=== PATIENT | female | born 1980 | race Caucasian/White ===

== ENCOUNTER 2016-11-30 17:30 | Emergency (ER) | payer MEDICAID ==
[~2016-11-30] VITALS: Ht 170.2 cm; Wt 61.0 kg
[~2016-11-30 17:30] MED LIST: B12-1CHW CHEW; FIORIC PO; LOMO PO; LORTA5 PO; VITA100T65 PO; ZOFR4TAB3 SL
[2016-11-30 17:36] VITALS: BP 144/85; PULSE 131; RESP 16; TEMP 98.7; O2SAT 100
--- NOTE | 2016-11-30 18:02 | PD ---
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 This patient complains of pelvic cramping and vaginal bleeding. She's had pelvic cramping for 4 solid weeks. She had an outpatient ultrasound 8 days ago showing a bit of fluid in the endometrial cavity and no ovarian cysts or sinister looking masses. There is a tiny cyst in the left side of the uterus. She says that she was having sex with her 4 days ago and during that intercourse she started having vaginal bleeding. Having some bleeding since. Has had tubal ligation. Doesn't think she is . Symptoms severity is moderate. No alleviating factors. Pain was exacerbated by intercourse. PFSH Past Medical History Hx Anticoagulant Therapy: Yes (ASA) Anxiety: Yes Depression: Yes Cancer: No Cardiac Catheterization: No Cardiovascular Problems: Yes (MURMUR) High Cholesterol: No Congestive Heart Failure: No Diabetes: No Diminished Hearing: No Endocrine: No Gastrointestinal Disorders: Yes (ULCERS,GERD) GERD: Yes Genitourinary: No Headaches: Yes (MIGRAINES) Hepatitis: No Hiatal Hernia: No Hypertension: No Immune Disorder: No Kidney Stones: Yes (RT. KIDNEY) Neurologic: Yes (MIGRAINES) Psychiatric: Yes (ANXIETY, DERESSION) Reproductive: No Immunizations Current: No Migraines: Yes Thyroid Disease: No Ulcer: Yes (PUD) PNEUMOCCOCAL Vaccine (Year): 2 ?: Not LMP: ABLATION Menopausal: No : 5 Para: 4 Miscarriage: 1 : 0 Tubal Ligation: Yes Past Surgical History Abdominal Surgery: Yes (GRICEL/POLYPS REMOVED FROM COLON) Appendectomy: No Body Medical Devices: BREAST IMPLANTS Cholecystectomy: Yes Coronary Artery Bypass Graft: No Gynecologic Surgery: Yes (TUBAL LIGATION) Neurologic Surgery: No Pacemaker: No Other Surgery: Yes (BREAST AUGMENTATION) Social History Alcohol Use: No Tobacco Use: No Substance Use: No Allergies-Medications (Allergen,Severity, Reaction): Coded Allergies: ketorolac (Unverified Allergy, Severe, ITCHY, 11/30/16) Reported Meds & Prescriptions Reported Meds & Active Scripts Active Reported Celexa (Citalopram Hydrobromide) 40 Mg Tab 40 Mg PO DAILY Fioricet (Penrzizosv-Qzpweyrbioaou-Mbwmopcg) 50-300-40 Mg Cap 1-2 Cap PO Q6H PRN Review of Systems General / Constitutional: No: Fever Eyes: No: Visual changes HENT: No: Headaches Cardiovascular: Positive: Tachycardia, No: Chest Pain or Discomfort Respiratory: No: Shortness of Breath Gastrointestinal: Positive: Abdominal Pain Genitourinary: Positive: Pelvic Pain, Vaginal Bleeding, No: Dysuria Musculoskeletal: No: Pain Skin: No Rash Neurologic: No: Weakness Psychiatric: No: Depression Endocrine: No: Polydipsia Hematologic/Lymphatic: No: Easy Bruising Physical Exam Narrative GENERAL: Well-nourished, well-developed patient with pelvic cramping . SKIN: Focused skin assessment reveals no rash and nodules. Skin is Warm and dry. HEAD: Atraumatic. Normocephalic. EYES: Pupils equal and round. No scleral icterus. No injection or drainage. ENT: No nasal bleeding or discharge. Mucous membranes pink and moist. NECK: Trachea midline. No JVD. CARDIOVASCULAR: Regular rate and rhythm. No murmur appreciated. Tachycardic 120s RESPIRATORY: No accessory muscle use. Clear to auscultation. Breath sounds equal bilaterally. GASTROINTESTINAL: Abdomen soft, non-tender, nondistended. Hepatic and splenic margins not palpable. MUSCULOSKELETAL: No obvious deformities. No clubbing. No cyanosis. No edema. NEUROLOGICAL: Awake and alert. No obvious cranial nerve deficits. Motor grossly within normal limits. Normal speech. PSYCHIATRIC: Appropriate mood and affect; insight and judgment normal. Pelvic: No blood or discharge in the vault. No cervical motion tenderness. There is right sided adnexal area tenderness. Data Data Last Documented VS Vital Signs Date Time Temp Pulse Resp B/P (MAP) Pulse Ox O2 Delivery O2 Flow Rate FiO2 11/30/16 17:36 98.7 131 16 144/85 (104) 100 Orders Orders Iv Access Insert/Monitor (11/30/16 17:52) Complete Blood Count With Diff (11/30/16 17:52) Basic Metabolic Panel (Bmp) (11/30/16 17:52) Prothrombin Time / Inr (Pt) (11/30/16 17:52) Act Partial Throm Time (Ptt) (11/30/16 17:52) Ed Urine Pregnancytest Poc (11/30/16 17:52) Belt Press Operator / Telemetry [id number].[id number] (11/30/16 18:20) Sodium Chlor 0.9% 1000 Ml Inj (Ns 1000 M (11/30/16 18:30) Morphine Inj (Morphine Inj) (11/30/16 18:30) Ondansetron Inj (Zofran Inj) (11/30/16 18:30) Labs Laboratory Tests Test 11/30/16 18:20 White Blood Count 4.4 TH/MM3 Red Blood Count 4.36 MIL/MM3 Hemoglobin 13.9 GM/DL Hematocrit 41.1 % Mean Corpuscular Volume 94.2 FL Mean Corpuscular Hemoglobin 32.0 PG Mean Corpuscular Hemoglobin Concent 33.9 % Red Cell Distribution Width 12.6 % Platelet Count 173 TH/MM3 Mean Platelet Volume 8.7 FL Neutrophils (%) (Auto) 61.6 % Lymphocytes (%) (Auto) 26.8 % Monocytes (%) (Auto) 10.7 % Eosinophils (%) (Auto) 0.4 % Basophils (%) (Auto) 0.5 % Neutrophils # (Auto) 2.7 TH/MM3 Lymphocytes # (Auto) 1.2 TH/MM3 Monocytes # (Auto) 0.5 TH/MM3 Eosinophils # (Auto) 0.0 TH/MM3 Basophils # (Auto) 0.0 TH/MM3 CBC Comment DIFF FINAL Differential Comment Prothrombin Time 10.5 SEC Prothromb Time International Ratio 1.0 RATIO Activated Partial Thromboplast Time 27.1 SEC Blood Urea Nitrogen 8 MG/DL Creatinine 0.70 MG/DL Random Glucose 95 MG/DL Calcium Level 9.5 MG/DL Sodium Level 138 MEQ/L Potassium Level 3.6 MEQ/L Chloride Level 102 MEQ/L Carbon Dioxide Level 27.4 MEQ/L Anion Gap 9 MEQ/L Estimat Glomerular Filtration Rate 95 ML/MIN [facility] Medical Decision Making Medical Screen Exam Complete: Yes Emergency Medical Condition: Yes Medical Record Reviewed: Yes Differential Diagnosis Symptomatic anemia, chronic pelvic pain, ectopic Narrative Course I have reviewed the patient's electronic medical record. I reviewed her outpatient ultrasound from 8 days ago. Lab study from a year ago revealed normal hemoglobin IV placed CBC is normal Metabolic profile is normal Coagulation studies are normal Urine is negative I gave her liter normal saline IV I gave her dose of morphine and Zofran for symptom relief No sign of infection or bleeding on exam. Ultrasound recently done is reassuring. On recheck her heart rate is now 105 and sinus rhythm, much improved Stable for outpatient follow-up with her MEDICAID ELIGIBILITY SPECIALIST physician Dr. Mcmahon who she has not mentioned this to despite 4 weeks of pelvic pain She will call him tomorrow morning I'm going to write her 15 Percocet for symptom relief Diagnosis Primary Impression: Female pelvic pain Additional Impression: Tachycardia Additional Instructions: Follow-up with CHILD CARE LEAD TEACHER physician The patient was warned about potential sedation for the medications they will receive on prescription. Med/Other Pt SpecificInfo: Other Disposition: 01 DISCHARGE HOME Condition: Stable Lalo Hurtado MD Nov 30, 2016 18:02
[2016-11-30] MEDS ORDERED: CELE40TA PO (18:05)
[2016-11-30] MEDS ORDERED: BUTA1CAP PO (18:05)
[2016-11-30] MEDS ORDERED: MORPHINE SULFATE 4 MG/ML INJ IV PUSH ONE (18:30)
[2016-11-30] MEDS ORDERED: SODIUM CHLOR 0.9% 1000 ML INJ 1,000 ML IV ONE (18:30)
[2016-11-30] MEDS ORDERED: ONDANSETRON HCL 4 MG/2 ML VIAL IVP ONE (18:30)
[2016-11-30 18:38] LABS: AUTOMATED NEUTROPHIL # 2.7 TH/MM3 (1.8-7.7); BASOPHIL % 0.5 % (0.0-2.0); EOSINOPHIL % 0.4 % (0.0-4.0); HEMATOCRIT 41.1 % (35.0-46.0); HEMO FLAGS DIFF FINAL; LYMPH % 26.8 % (9.0-44.0); LYMPHOCYTE # 1.2 TH/MM3 (1.0-4.8); MEAN CELL VOLUME 94.2 FL (80.0-100.0); MEAN CORPUSCULAR HGB CONC 33.9 % (32.0-36.0); MONO % 10.7 % (0.0-8.0); NEUT % 61.6 % (16.0-70.0); PLATELET COUNT 173 TH/MM3 (150-450); RED BLOOD COUNT 4.36 MIL/MM3 (4.00-5.30); RED CELL DISTRIBUTION WIDTH 12.6 % (11.6-17.2); WHITE BLOOD COUNT 4.4 TH/MM3 (4.0-11.0)
[2016-11-30 18:44] LABS: POTASSIUM 3.6 MEQ/L (3.5-5.1)
[2016-11-30 18:47] LABS: BICARBONATE 27.4 MEQ/L (21.0-32.0)
[2016-11-30 18:50] LABS: APTT (PATIENT) 27.1 SEC (24.3-30.1); PROTHROMBIN TIME - PATIENT 10.5 SEC (9.8-11.6)
[2016-11-30] MEDS ORDERED: PERC5TAB12 PO (18:54)
[2016-11-30 19:01] VITALS: BP 117/80; PULSE 95; RESP 16; TEMP 99; O2SAT 99
== END 2016-11-30 19:10 | disposition home or self-care (01) ==
LOC: PHED 17:30
DX: R10.2 Pelvic and perineal pain (principal); R00.0 Tachycardia, unspecified
CPT/HCPCS: 80048; 84703; 85025; 85610; 85730; 96361; 96374; 96375; 99284; J2270; J2405; J7030

== ENCOUNTER 2017-03-31 17:27 | Emergency (ER) | payer MEDICAID ==
[~2017-03-31] VITALS: Ht 170.2 cm; Wt 62.0 kg
[~2017-03-31 17:27] MED LIST changes: -B12-1CHW CHEW; +BUTA1CAP PO; +CELE40TA PO; -FIORIC PO; -LOMO PO; -LORTA5 PO; +PERC5TAB12 PO; -VITA100T65 PO; -ZOFR4TAB3 SL
[2017-03-31 17:29] VITALS: BP 137/81; PULSE 110; RESP 16; TEMP 98.4; O2SAT 99
[2017-03-31 17:57] LABS: BILIRUBIN, URINE NEG (NEG); BLOOD, URINE NEG (NEG); GLUCOSE,URINE NEG (NEG); KETONE, URINE NEG (NEG); NITRITE,URINE NEG (NEG); PH, URINE 8.5 (5.0-8.5); URINE LEUKOCYTE ESTERASE NEG (NEG)
[2017-03-31] MEDS ORDERED: MORPHINE SULFATE 2 MG/ML INJ IV PUSH ONE (18:00)
[2017-03-31 18:13] LABS: URINE COLOR STRAW (YELLW/STRAW)
[2017-03-31 18:14] LABS: BACTERIA, URINE MOD /hpf
[2017-03-31 18:15] LABS: AMORPHOUS SEDIMENT, URINE MOD
--- NOTE | 2017-03-31 18:16 | PD ---
HPI Chief Complaint: GI Complaint Time Seen by Provider: 17:47 Travel History International Travel<30 days: No Contact w/Intl Traveler<30days: No Traveled to known affect area: No History of Present Illness HPI 36yo F with c/o right sided back pain that radiates to the right abdomen for 4 weeks. Said it was intermittent initially but now more constant. Said there was a blood clot that she saw on the toilet paper when she wipe herself today. Denies any fever, chest pain, sob, n/v, dysuria, hematuria PFSH Past Medical History Hx Anticoagulant Therapy: Yes (ASA) Anxiety: Yes Depression: Yes Heart Rhythm Problems: Yes Cancer: No Cardiac Catheterization: No Cardiovascular Problems: Yes (MURMUR) High Cholesterol: No Congestive Heart Failure: No Diabetes: No Diminished Hearing: No Endocrine: No Gastrointestinal Disorders: Yes (ULCERS,GERD) GERD: Yes Genitourinary: No Headaches: Yes (MIGRAINES) Hepatitis: No Hiatal Hernia: No Hypertension: No Immune Disorder: No Kidney Stones: Yes (RT. KIDNEY) Musculoskeletal: Yes Neurologic: Yes (MIGRAINES) Psychiatric: Yes (ANXIETY, DERESSION) Reproductive: No Immunizations Current: No Migraines: Yes Thyroid Disease: No Ulcer: Yes (PUD) Influenza Vaccination: No PNEUMOCCOCAL Vaccine (Year): 2 ?: Not LMP: ABLATION Menopausal: No : 5 Para: 4 Miscarriage: 1 : 0 Tubal Ligation: Yes Past Surgical History Abdominal Surgery: Yes (GRICEL/POLYPS REMOVED FROM COLON) Appendectomy: No Body Medical Devices: BREAST IMPLANTS Cholecystectomy: Yes Coronary Artery Bypass Graft: No Gynecologic Surgery: Yes (TUBAL LIGATION) Neurologic Surgery: No Pacemaker: No Other Surgery: Yes (BREAST AUGMENTATION) Family History Family Myocardial Infarction: Yes Social History Alcohol Use: Yes Tobacco Use: No Substance Use: No Allergies-Medications (Allergen,Severity, Reaction): Coded Allergies: ketorolac (Unverified Allergy, Severe, ITCHY, 03/31/17) Reported Meds & Prescriptions Reported Meds & Active Scripts Active Mobic (Meloxicam) 15 Mg Tab 15 Mg PO DAILY Cipro (Ciprofloxacin HCl) 500 Mg Tab 500 Mg PO BID 10 Days Review of Systems Except as stated in HPI: all other systems reviewed are Neg Physical Exam Narrative GEN: 36yo F not in distress. SKIN: Warm and dry. HEAD: Normocephalic, atraumatic. CV: S1, S2. Lungs: CTA B/L, equal breath sounds. Abd: soft, +TTP RUQ, RLQ. No rebound ttp. No guarding. BACK: No midline ttp. +CVA tenderness right. RECAL: Hemaprompt negative. No hemorrhoids. No mass. Ext: No edema. NEURO: No focal neurologic deficits. Data Data Last Documented VS Vital Signs Date Time Temp Pulse Resp B/P (MAP) Pulse Ox O2 Delivery O2 Flow Rate FiO2 03/31/17 18:33 18 03/31/17 17:29 98.4 110 137/81 (99) 99 Orders Orders Urinalysis - C+S If Indicated (03/31/17 17:33) Basic Metabolic Panel (Bmp) (03/31/17 17:59) Complete Blood Count With Diff (03/31/17 17:59) Lipase (03/31/17 17:59) Ct Abd/Pel W Iv Contrast(Rout) (03/31/17 17:59) Ed Urine Pregnancytest Poc (03/31/17 17:59) Morphine Inj (Morphine Inj) (03/31/17 18:00) Urine Culture (03/31/17 17:30) Iohexol 350 Inj (Omnipaque 350 Inj) (03/31/17 18:51) Ed Discharge Order (03/31/17 19:49) Ciprofloxacin (Cipro) (03/31/17 20:00) Labs Laboratory Tests Test 03/31/17 17:30 03/31/17 18:15 Urine Collection Type CLEAN CATCH Urine Color STRAW Urine Turbidity MOD Urine pH 8.5 Urine Specific [place] 1.022 Urine Protein NEG mg/dL Urine Glucose (UA) NEG mg/dL Urine Ketones NEG mg/dL Urine Occult Blood NEG Urine Nitrite NEG Urine Bilirubin NEG Urine Leukocyte Esterase NEG Urine Squamous Epithelial Cells 6-8 /hpf Urine Amorphous Sediment MOD Urine Bacteria MOD /hpf Microscopic Urinalysis Comment CULTURE INDICATED Urine Collection Time 1730 White Blood Count 4.8 TH/MM3 Red Blood Count 4.01 MIL/MM3 Hemoglobin 13.3 GM/DL Hematocrit 38.7 % Mean Corpuscular Volume 96.5 FL Mean Corpuscular Hemoglobin 33.1 PG Mean Corpuscular Hemoglobin Concent 34.3 % Red Cell Distribution Width 12.7 % Platelet Count 161 TH/MM3 Mean Platelet Volume 9.4 FL Neutrophils (%) (Auto) 55.6 % Lymphocytes (%) (Auto) 31.0 % Monocytes (%) (Auto) 10.7 % Eosinophils (%) (Auto) 1.2 % Basophils (%) (Auto) 1.5 % Neutrophils # (Auto) 2.6 TH/MM3 Lymphocytes # (Auto) 1.5 TH/MM3 Monocytes # (Auto) 0.5 TH/MM3 Eosinophils # (Auto) 0.1 TH/MM3 Basophils # (Auto) 0.1 TH/MM3 CBC Comment DIFF FINAL Differential Comment Blood Urea Nitrogen 11 MG/DL Creatinine 0.71 MG/DL Random Glucose 92 MG/DL Calcium Level 8.8 MG/DL Sodium Level 138 MEQ/L Potassium Level 4.1 MEQ/L Chloride Level 105 MEQ/L Carbon Dioxide Level 25.5 MEQ/L Anion Gap 8 MEQ/L Estimat Glomerular Filtration Rate 94 ML/MIN Lipase 150 U/L MDM Medical Decision Making Medical Screen Exam Complete: Yes Emergency Medical Condition: Yes Differential Diagnosis Appendicitis vs. nephrolithiasis vs. pyelonephritis Narrative Course 36yo F with right sided flank pain radiating to abdomen for 4-6 weeks. Labs reviewed, no leukocytosis. UA showed moderate bacteria. There is some squamous. Pt has no urinary complaint, will wait for urine culture, likely contamination. Urine negative. CTa/p showed no obstructive or acute inflammatory changes. Small right ovarian cyst. Prominent uterine vessels that can be seen in setting of chronic pelvic vascular congestion syndrome. Pt can follow up with PRODUCTION FLOATER. Sign out to next team to follow up rest of labs and reevaluate patient. HemaPrompt Point of Care Internal Pos. & Neg. Controls: Passed Fecal Specimen Occult Blood: Negative Diagnosis Primary Impression: Right flank pain Scripts Meloxicam (Mobic) 15 Mg Tab 15 MG PO DAILY, #20 TAB 0 Refills Prov: Duncan Amezcua MD 03/31/17 Ciprofloxacin (Cipro) 500 Mg Tab 500 MG PO BID for Infection for 10 Days, #20 TAB 0 Refills Prov: Duncan Amezcua MD 03/31/17 Nancy Fountain DO Mar 31, 2017 18:16
[2017-03-31 18:25] LABS: AUTOMATED NEUTROPHIL # 2.6 TH/MM3 (1.8-7.7); BASOPHIL # 0.1 TH/MM3 (0-0.2); BASOPHIL % 1.5 % (0.0-2.0); EOSINOPHIL # 0.1 TH/MM3 (0-0.4); EOSINOPHIL % 1.2 % (0.0-4.0); HEMATOCRIT 38.7 % (35.0-46.0); HEMOGLOBIN 13.3 GM/DL (11.6-15.3); LYMPHOCYTE # 1.5 TH/MM3 (1.0-4.8); MEAN CELL VOLUME 96.5 FL (80.0-100.0); MEAN CORPUSCULAR HEMOGLOBIN 33.1 PG (27.0-34.0); MEAN CORPUSCULAR HGB CONC 34.3 % (32.0-36.0); MEAN PLATELET VOLUME 9.4 FL (7.0-11.0); MONO % 10.7 % (0.0-8.0); MONOCYTE # 0.5 TH/MM3 (0-0.9); NEUT % 55.6 % (16.0-70.0); PLATELET COUNT 161 TH/MM3 (150-450); RED BLOOD COUNT 4.01 MIL/MM3 (4.00-5.30); RED CELL DISTRIBUTION WIDTH 12.7 % (11.6-17.2); WHITE BLOOD COUNT 4.8 TH/MM3 (4.0-11.0)
[2017-03-31 18:33] VITALS: RESP 18
[2017-03-31 18:42] LABS: CALCIUM 8.8 MG/DL (8.5-10.1)
[2017-03-31 18:43] LABS: BICARBONATE 25.5 MEQ/L (21.0-32.0)
[2017-03-31 18:46] LABS: CREATININE 0.71 MG/DL (0.50-1.00)
[2017-03-31] MEDS ORDERED: IOHEXOL 350 MG/ML 10 ML VIAL (for RAD DIAG) IVCONTRAST ONE (18:51)
--- NOTE | 2017-03-31 18:59 | RADRPT ---
EXAM DATE/TIME: 03/31/2017 18:36 [facility] COMPARISON: CT ABDOMEN & PELVIS W CONTRAST, October 02, 2014, 16:53. INDICATIONS : Right lower abdomen pain.Back pain. IV CONTRAST: 100 cc Omnipaque 350 (iohexol) IV ORAL CONTRAST: No oral contrast ingested. RADIATION DOSE: 5.48 CTDIvol (mGy) MEDICAL HISTORY : Gastroesophageal reflux disease. Renal calculi. Heart murmur, ulcers, migraines. SURGICAL HISTORY : Tubal ligation. Cholecystectomy.Breast augmentation colon polyps ENCOUNTER: Initial ACUITY: 1 day PAIN SCALE: 8/10 LOCATION: Right lower quadrant TECHNIQUE: Volumetric scanning of the abdomen and pelvis was performed. Using automated exposure control and ad justment of the mA and/or kV according to patient size, radiation dose was kept as low as reasonably achievable to obtain optimal diagnostic quality images. DICOM format image data is available electro nically for review and comparison. FINDINGS: LOWER LUNGS: The visualized lower lungs are clear. LIVER: Homogeneous density without lesion. There is no dilation of the biliary tree. No calcified gallston es. SPLEEN: Normal size without lesion. PANCREAS: Within normal limits. KIDNEYS: Normal in size and shape. There is no mass, stone or hydronephrosis. ADRENAL GLANDS: Within normal limits. VASCULAR: There is no aortic aneurysm. BOWEL/MESENTERY: The stomach, small bowel, and colon demonstrate no acute abnormality. There is no free intraperitone al air or fluid. Appendix well visualized, normal. ABDOMINAL WALL: Within normal limits. RETROPERITONEUM: There is no lymphadenopathy. BLADDER: No wall thickening or mass. REPRODUCTIVE: 1.8 cm right ovarian cyst. Trace free fluid in the pelvic cavity. Prominent uterine and ovarian varic osities are again noted. INGUINAL: There is no lymphadenopathy or hernia. MUSCULOSKELETAL: No acute bony abnormality demonstrated. There is a mild S. shaped thoracolumbar curvature again seen. CONCLUSION: 1. No obstruction or acute inflammatory changes. 2. Small right ovarian cyst. 3. Prominent uterine vessels and can be seen in the setting of chronic pelvic vascular congestion syn drome. Jose Gary MD on March 31, 2017 at 18:52 Board Certified Radiologist. This report was verified electronically.
[2017-03-31] MEDS ORDERED: MOBI15TA PO (19:45)
[2017-03-31] MEDS ORDERED: CIPR-9 PO (19:45)
--- NOTE | 2017-03-31 19:48 | PD ---
Physical Exam Time Seen by Provider: 19:38 Narrative The patient was transferred to [place] by Dr. Fountain. The patient has had 6 weeks of abdominal pain and, reviewing her chart, her abdominal pain has apparently been longer than that. She states she is not nauseated. Dr. Fountani did a rectal exam and there was no one in her stool. Data Data Last Documented VS Vital Signs Date Time Temp Pulse Resp B/P (MAP) Pulse Ox O2 Delivery O2 Flow Rate FiO2 03/31/17 18:33 18 03/31/17 17:29 98.4 110 137/81 (99) 99 Orders Orders Urinalysis - C+S If Indicated (03/31/17 17:33) Basic Metabolic Panel (Bmp) (03/31/17 17:59) Complete Blood Count With Diff (03/31/17 17:59) Lipase (03/31/17 17:59) Ct Abd/Pel W Iv Contrast(Rout) (03/31/17 17:59) Ed Urine Pregnancytest Poc (03/31/17 17:59) Morphine Inj (Morphine Inj) (03/31/17 18:00) Urine Culture (03/31/17 17:30) Iohexol 350 Inj (Omnipaque 350 Inj) (03/31/17 18:51) Labs Laboratory Tests Test 03/31/17 17:30 03/31/17 18:15 Urine Collection Type CLEAN CATCH Urine Color STRAW Urine Turbidity MOD Urine pH 8.5 Urine Specific [place] 1.022 Urine Protein NEG mg/dL Urine Glucose (UA) NEG mg/dL Urine Ketones NEG mg/dL Urine Occult Blood NEG Urine Nitrite NEG Urine Bilirubin NEG Urine Leukocyte Esterase NEG Urine Squamous Epithelial Cells 6-8 /hpf Urine Amorphous Sediment MOD Urine Bacteria MOD /hpf Microscopic Urinalysis Comment CULTURE INDICATED Urine Collection Time 1730 White Blood Count 4.8 TH/MM3 Red Blood Count 4.01 MIL/MM3 Hemoglobin 13.3 GM/DL Hematocrit 38.7 % Mean Corpuscular Volume 96.5 FL Mean Corpuscular Hemoglobin 33.1 PG Mean Corpuscular Hemoglobin Concent 34.3 % Red Cell Distribution Width 12.7 % Platelet Count 161 TH/MM3 Mean Platelet Volume 9.4 FL Neutrophils (%) (Auto) 55.6 % Lymphocytes (%) (Auto) 31.0 % Monocytes (%) (Auto) 10.7 % Eosinophils (%) (Auto) 1.2 % Basophils (%) (Auto) 1.5 % Neutrophils # (Auto) 2.6 TH/MM3 Lymphocytes # (Auto) 1.5 TH/MM3 Monocytes # (Auto) 0.5 TH/MM3 Eosinophils # (Auto) 0.1 TH/MM3 Basophils # (Auto) 0.1 TH/MM3 CBC Comment DIFF FINAL Differential Comment Blood Urea Nitrogen 11 MG/DL Creatinine 0.71 MG/DL Random Glucose 92 MG/DL Calcium Level 8.8 MG/DL Sodium Level 138 MEQ/L Potassium Level 4.1 MEQ/L Chloride Level 105 MEQ/L Carbon Dioxide Level 25.5 MEQ/L Anion Gap 8 MEQ/L Estimat Glomerular Filtration Rate 94 ML/MIN Lipase 150 U/L MDM Medical Record Reviewed: Yes Supervised Visit with ANTONINA: Yes Interpretation(s) The CBC is normal with a white count of only 4800. She is not anemic, her hemoglobin is 13.3. The urinalysis shows moderate turbidity with moderate bacteria and culture is indicated. The CT abdomen pelvis shows good visualization of the appendix and it is normal. The CT shows no obstruction or acute inflammatory changes. There is a small right ovarian cyst. Prominent uterine vessels are seen and the radiologist suggested in the proper setting this could be chronic pelvic mask or congestion syndrome. The urine test is negative. Differential Diagnosis , PID, appendicitis, colitis, ovarian cyst, pelvic/abdominal pain etiology undetermined, drug seeking behavior Narrative Course The patient states she gets a rash with Toradol. She can take Motrin which he states that she wants something stronger than Motrin. I do not feel that narcotics would be a good idea for this particular patient because of the addictive potential for this chronic pain. The patient may have a urinary tract infection and will be given Cipro. Diagnosis Primary Impression: Urinary tract infection Additional Impression: Abdominal pain of unknown etiology Additional Instruction: The Cipro is one tablet twice daily for 10 days. Increase her liquid intake to establish a good urine flow through your kidneys. Follow-up with your primary care physician as soon as possible. Med/Other Pt SpecificInfo: Prescription(s) given Scripts Meloxicam (Mobic) 15 Mg Tab 15 MG PO DAILY, #20 TAB 0 Refills Prov: Duncan Amezcua MD 03/31/17 Ciprofloxacin (Cipro) 500 Mg Tab 500 MG PO BID for Infection for 10 Days, #20 TAB 0 Refills Prov: Duncan Amezcua MD 03/31/17 Disposition: 01 DISCHARGE HOME Condition: Stable Duncan Amezcua MD Mar 31, 2017 19:48
[2017-03-31] MEDS ORDERED: CIPROFLOXACIN 500 MG TAB PO ONE (20:00)
== END 2017-03-31 20:42 | disposition home or self-care (01) ==
LOC: PHED 17:27
DX: N39.0 Urinary tract infection, site not specified (principal); R10.9 Unspecified abdominal pain; F32.9 Major depressive disorder, single episode, unspecified; K21.9 Gastro-esophageal reflux disease without esophagitis
CPT/HCPCS: 74177; 80048; 81001; 83690; 84703; 85025; 87086; 96374; 99285; J2270; Q9967